=== PATIENT | male | born 1995 ===

== ENCOUNTER 2017-10-17 03:01 | Emergency (ER) | payer OTHER ==
[2017-10-17 04:10] LABS: #Eosinphils 0.1 thou/uL (0.0-0.7); #Lymphocytes 1.6 thou/uL (1.20-3.40); #Monocytes 0.4 thou/uL (0.11-0.59); #Neutrophils 2.4 thou/uL (1.40-6.50); %Basophils 0.4 % (0.0-1.0); %Eosinophils 2.4 % (0.0-10.0); %Monocytes 8.4 % (0.0-4.0); %Neutrophils 53.8 % (31.0-61.0); Hemoglobin 11.2 g/dL (14.0-18.0); Mean Corpuscular HGB CONC 33.3 g/dL (32.0-36.0); Mean Corpuscular Hemoglobin 24.7 pg (25.0-35.0); Mean Corpuscular Volume 74.3 fL (78.0-98.0); Mean Platelet Volume 7.2 fL (7.4-10.4); Platelet Count 283 thou/uL (130-400); RBC Distribution Width 14.3 % (11.5-14.5); Red Blood Cell (RBC) Count 4.54 mill/uL (4.00-5.20); White Blood Cell (WBC) Count 4.5 thou/uL (4.8-10.8)
[2017-10-17 04:29] LABS: ALT (SGPT) 48 U/L (8-55); AST (SGOT) 46 U/L (5-34); Acetaminophen Less than 6.0 mcg/mL (10.0-30.0); Alcohol 232 mg/dL (Less than 10); Alkaline Phosphatase 54 U/L (Less than 750); Anion Gap 12 mmol/L (10-20); BUN (Urea Nitrogen) 12 mg/dL (8.9-20.6); Bilirubin, Total 0.4 mg/dL (0.2-1.2); Calc. Creatinine Clearance 0 mL/min (70-130); Calcium 8.2 mg/dL (7.8-10.44); Carbon Dioxide 26 mmol/L (22-29); Chloride 106 mmol/L (98-107); Estimated GFR-MDRD Greater than 90; Globulin 2.4 g/dL (2.4-3.5); Glucose 100 mg/dL (70-105); Potassium 3.4 mmol/L (3.5-5.1); Protein, Total 6.4 g/dL (6.0-8.3); Salicylate Less than 8.0 mg/dL (15.0-30.0); Sodium 141 mmol/L (136-145)
--- NOTE | 2017-10-17 15:38 | CT ---
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 Pt hit his head but did not pass out. He has had vomiting since the head injury. TECHNIQUE: Axial computed tomography images of the cervical spine without intravenous contrast. Coronal and sagittal reformatted images were created and reviewed. COMPARISON: No relevant prior studies available. FINDINGS: Vertebrae: Nonspecific straightening of the cervical lordosis. Vertebral body height and AP alignment is preserved. No acute fracture. Discs/spinal canal/neural foramina: No acute findings. No spinal canal stenosis. Soft tissues: Unremarkable. Lung apices: Unremarkable as visualized. Pleural space: No apical pneumothorax. IMPRESSION: No acute fracture. Thank you for allowing us to participate in the care of your patient. Dictated and Authenticated by: Ray Ernst MD 10/17/2017 5:14 AM Central Time ([place] & [place]) FINAL REPORT CT CERVICAL SPINE WITH CORONAL AND SAGITTAL REFORMATIONS: I agree with the preliminary report given by Dr. Ernst of [facility]. POS: [facility]
--- NOTE | 2017-10-17 15:40 | CT ---
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 Pt hit his head but did not pass out. He has had vomiting since the head in jury. TECHNIQUE: Axial computed tomography images of the head/brain without intravenous contrast. COMPARISON: No relevant prior studies available. FINDINGS: Brain: Unremarkable. No hemorrhage. No significant white matter disease. No edema. Ventricles: Unremarkable. No ventriculomegaly. Bones/joints: Unremarkable. No acute fracture. Soft tissues: Right posterior scalp soft tissue swelling. Sinuses: Mild paranasal sinus disease. Mastoid air cells: Unremarkable as visualized. No mastoid effusion. IMPRESSION: No acute intracranial abnormality. Thank you for allowing us to participate in the care of your patient. Dictated and Authenticated by: Ray Ernst MD 10/17/2017 5:19 AM Central Time ([place] & [place]) FINAL REPORT CT BRAIN WITHOUT CONTRAST: I agree with the preliminary report given by Dr. Ray Ernst of [facility]. POS: [facility]
== END 2017-10-17 05:46 | disposition home or self-care (01) ==
LOC: ERS 03:01
DX: S06.9X0A Unspecified intracranial injury without loss of consciousness, initial encounter (principal); S00.83XA Contusion of other part of head, initial encounter; F10.129 Alcohol abuse with intoxication, unspecified; W19.XXXA Unspecified fall, initial encounter
CPT/HCPCS: 36415; 70450; 72125; 80053; 80307; 85025; 96360